=== PATIENT | female | born 1980 | race Hispanic/Latino ===

== ENCOUNTER 2018-10-16 16:08 | Emergency (ER) | payer OTHER ==
[2018-10-16 17:59] LABS: APPEARANCE,URINE Clear (CLEAR); BILIRUBIN,URINE Negative (NEGATIVE); COLOR,URINE Yellow (YELLOW); GLUCOSE, URINE (UA) Negative (NEGATIVE); KETONES,URINE Negative (NEGATIVE); LEUKOCYTE ESTERASE ,URINE Negative (NEGATIVE); NITRATE,URINE Negative (NEGATIVE); OCCULT BLOOD,URINE Negative (NEGATIVE); PH,URINE 8.5 (5.0-8.0); PROTEIN,URINE Negative (NEGATIVE); UROBILINOGEN,URINE 0.2 mg/dL (0.2-1.0)
[2018-10-16 18:01] LABS: HCG,QUAL RESULT NEGATIVE (NEGATIVE)
[2018-10-16] MEDS ORDERED: METOCLOPRAMIDE 10 MG/2 ML VIAL ONE (18:25)
[2018-10-16] MEDS ORDERED: KETOROLAC TROMETHAMINE 15MG/ML ONE (18:25)
[2018-10-16] MEDS ORDERED: DiphenhydrAMINE HCL 50 MG/ML VIAL ONE (18:25)
== END 2018-10-16 19:23 | disposition home or self-care (01) ==
LOC: EDH 16:08
DX: G43.109 Migraine with aura, not intractable, without status migrainosus (principal)
CPT/HCPCS: 70450; 81003; 81025; 96361; 96374; 96375; 99284; J1200; J1885; J2765